=== PATIENT | female | born 1985 | race Caucasian/White ===

== ENCOUNTER 2016-10-19 13:30 | Emergency (ER) | payer OTHER ==
[~2016-10-19] VITALS: Ht 165.1 cm; Wt 119.0 kg
[~2016-10-19 13:30] MED LIST: ALPRAZOLAM0.25 MG PO; AMITRIPTYLINE H50 MG PO; ATARAX,VISTARIL25 MG PO; BUPROPION HCL150 M2 PO; CLINDAMYCIN HC300 MG PO; CLONAZEPAM0.5 MG PO; FLONASE16 G1 BOTH NARES; LEVAQUIN750 MG PO; LEVOTHYROXINE25 MCG PO; LORTAB 5-325 M1 EACH PO; MECLIZINE HCL25 MG PO; MOBIC15 MG PO; MOTRIN600 MG PO; NAPROSYN500 MG PO; NORCO 5/3251 TABLET PO; OCELLA TABLET1 EACH PO; PERCOCET 5/31 TABLET PO; PHENTERMINE H37.5 MG PO; PHENTERMINE HCL15 MG PO; PHENTERMINE HCL30 MG PO; PREDNISONE10 MG PO; REPAN 50-325-41 EAC1 PO; SERTRALINE HCL50 MG PO; TORADOL10 MG PO; TRAMADOL HCL50 MG PO; ULTRAM50 MG PO; VALIUM2 MG PO; VENTOLIN HFA18 GM IH; XANAX0.5 MG PO; YAZ1 TABLET PO; ZARAH TABLET1 EACH PO; ZOLOFT100 MG PO; ZYRTEC10 M2 PO
[2016-10-19] MEDS ORDERED: MECLIZINE HCL12.5 M1 PO (13:52)
[2016-10-19] MEDS ORDERED: PRENATAL TABLE1 EAC3 PO (14:07)
[2016-10-19 14:09] VITALS: BP 152/71
== END 2016-10-19 14:10 | disposition home or self-care (01) ==
LOC: EME 13:30
DX: O99.89 Other specified diseases and conditions complicating pregnancy, childbirth and the puerperium (principal); R42 Dizziness and giddiness; Z3A.01 Less than 8 weeks gestation of pregnancy; J45.909 Unspecified asthma, uncomplicated
CPT/HCPCS: 99281; 99284

== ENCOUNTER 2017-06-11 08:47 | Inpatient (IN) | payer OTHER ==
[~2017-06-11] VITALS: Ht 162.6 cm; Wt 129.3 kg
[2017-06-11] VITALS (8 sets, daily range): BP systolic 102–138; BP diastolic 51–75
[~2017-06-11 08:47] MED LIST changes: +MECLIZINE HCL12.5 M1 PO; +PRENATAL TABLE1 EAC3 PO
[2017-06-11 09:41] LABS: BASOPHIL COUNT 0.1 K/uL (0-0.1); EOSINOPHIL (%) 0.7 % (0-5); EOSINOPHIL COUNT 0.1 K/uL (0-0.3); HEMATOCRIT 35.9 % (36.0-46.0); IMMATURE GRANULOCYTE (%) 0.3 % (0.0-0.7); INSTRUMENT ABS NEUTROPHIL CT 7.3 K/uL; LYMPHOCYTE COUNT 2.6 K/uL (1.0-2.8); MCH 26.1 PG (29.0-34.0); MCV 81.4 FL (83-99); MONOCYTE (%) 7.4 % (3-12); MONOCYTE COUNT 0.8 K/uL (0-0.8); NEUTROPHIL (%) 66.9 % (45-76); NEUTROPHIL COUNT 7.3 K/uL (1.8-6.4); PLATELET COUNT 303 K/uL (156-360); RBC DIS.WIDTH-CV 16.9 % (11.8-14.6); RBC DIS.WIDTH-SD 49.8 % (39-53); RED BLOOD COUNT 4.41 M/uL (3.80-5.20); WHITE BLOOD COUNT 10.9 K/uL (4.1-10.2)
[2017-06-11 23:17] LABS: HEMATOCRIT 31.5 % (36.0-46.0); MCH 26.5 PG (29.0-34.0); MCHC 32.1 G/DL (30.0-36.0); MCV 82.7 FL (83-99); MEAN PLAT.VOLUME 10.4 uM^3 (9.5-12.4); PLATELET COUNT 256 K/uL (156-360); RBC DIS.WIDTH-CV 17.1 % (11.8-14.6); RBC DIS.WIDTH-SD 50.4 % (39-53); RED BLOOD COUNT 3.81 M/uL (3.80-5.20)
[2017-06-11 23:26] LABS: CHLORIDE 106 mEq/L (99-109); SODIUM 135 mEq/L (136-147)
[2017-06-11 23:28] LABS: GLUCOSE 113 mg/dL (70-99)
[2017-06-11 23:30] LABS: ANION GAP 9 MEQ/L (2-14); TOTAL BILIRUBIN 0.7 mg/dL (0.0-1.0)
[2017-06-11 23:32] LABS: ALKALINE PHOSPHATASE 115 IU/L (3-129); GFR ESTIMATE (CALCULATED) > 59 mL/min/
[2017-06-11 23:33] LABS: UREA NITROGEN (BUN) 8 mg/dL (9-23)
[2017-06-12 03:13] VITALS: BP 122/54
[2017-06-12 09:00] VITALS: BP 123/58
[2017-06-12 11:00] VITALS: BP 108/66
[2017-06-12 15:08] VITALS: BP 125/68
[2017-06-12 19:52] VITALS: BP 135/60
[2017-06-12 23:10] VITALS: BP 134/62
[2017-06-13 02:52] VITALS: BP 129/61
[2017-06-13 07:56] VITALS: BP 109/56
[2017-06-13] MEDS ORDERED: IBUPROFEN800 MG PO (09:13)
[2017-06-13] MEDS ORDERED: ENDOCET 5-3251 EACH PO (09:13)
[2017-06-13 11:36] VITALS: BP 122/85
== END 2017-06-13 18:06 | disposition home health service (06) | DRG 765 ==
LOC: 2WEST 08:47 → 2SOUTH 10:42 → 2WEST 06-13 18:06
PROVIDERS: Obstetrics & Gynecology; Obstetrics & Gynecology Obstetrics
PROC: 10D00Z1 Extraction of Products of Conception, Low, Open Approach (ICD-10-PCS; principal; 2017-06-11)
DX: O34.211 Maternal care for low transverse scar from previous cesarean delivery (principal); O69.81X0 Labor and delivery complicated by cord around neck, without compression, not applicable or unspecified; O99.02 Anemia complicating childbirth; D62 Acute posthemorrhagic anemia; O99.214 Obesity complicating childbirth; E66.01 Morbid (severe) obesity due to excess calories; Z68.41 Body mass index [BMI] 40.0-44.9, adult; Z3A.39 39 weeks gestation of pregnancy; Z37.0 Single live birth; Z80.0 Family history of malignant neoplasm of digestive organs; Z80.41 Family history of malignant neoplasm of ovary; Z82.49 Family history of ischemic heart disease and other diseases of the circulatory system; Z83.3 Family history of diabetes mellitus; Z87.891 Personal history of nicotine dependence
CPT/HCPCS: 80053; 85025; 85027; 86850; 86900; 86901; J0690; J1885; J2274; J2405; J7120